=== PATIENT | male | born 1950 | race Caucasian/White ===

== ENCOUNTER 2021-04-15 08:28 | Outpatient (CLI) | payer MEDICARE | END 2021-04-15 23:59 | disposition home or self-care (01) | LOC: RAD 08:28 | PROVIDERS: ATTEND Internal Medicine Hematology & Oncology | DX: C61 Malignant neoplasm of prostate (principal); C85.91 Non-Hodgkin lymphoma, unspecified, lymph nodes of head, face, and neck | CPT/HCPCS: 36573; C1751 ==